=== PATIENT | female | born 1960 | race Caucasian/White ===

== ENCOUNTER → 2022-02-01 11:23 | Outpatient (BNVA) | payer OTHER, SELFPAY | PROVIDERS: PCP Internal Medicine; Referring Provider Internal Medicine; Visit Provider Physician Assistant | DX: Z86.010 Personal history of colon polyps (principal) | CPT/HCPCS: 99202 ==

== ENCOUNTER 2022-02-11 12:22 | Outpatient (REF) | payer OTHER, SELFPAY ==
[2022-02-11 13:48] LABS: MANUAL DIFF FLAG NO
[2022-02-11 13:51] LABS: Basophils Absolute Auto 0.1 X10*3/uL (0.0-0.2); Eosinophils Absolute Auto 0.3 X10*3/uL (0.0-0.4); Eosinophils Percent Auto 6.5 % (0-4); Hematocrit 37.2 % (37.0-47.0); Hemoglobin 12.1 g/dl (12.0-16.0); Imm Gran Abs Auto 0.01 X10*3/uL (0.00-0.03); Imm Gran Pct Auto 0.2 % (0.0-0.4); Lymphocytes Absolute Auto 1.5 X10*3/uL (1.2-4.9); Lymphocytes Percent Auto 30.9 % (20-40); Mean Corpuscular HGB Conc 32.5 g/dl (31.0-35.0); Mean Corpuscular Hemoglobin 30.4 pg (27.0-33.0); Mean Corpuscular Volume 93.5 fL (80.0-98.0); Mean Platelet Volume 10.7 fL (9.4-12.3); Monocytes Absolute Auto 0.4 X10*3/uL (0.1-1.2); Monocytes Percent Auto 8.7 % (2-11); Neutrophils Absolute Auto 2.6 x10*3/uL (2.0-8.3); Neutrophils Percent Auto 52.7 % (45-73); Platelet Count 318 X10*3/uL (160-400); Red Blood Count 3.98 X10*6/uL (4.20-5.50)
[2022-02-11 14:07] LABS: Alanine Aminotransferase 11 U/L (0-31); Albumin Level 4.3 g/dL (3.5-5.0); Alkaline Phosphatase 73 U/L (39-117); Anion Gap 14 (12-20); Aspartate Amino Transferase 18 U/L (5-31); Bilirubin Total 0.3 mg/dL (0.0-1.0); Blood Urea Nitrogen 13 mg/dL (9-16); Calcium 9.4 mg/dL (8.4-10.2); Carbon Dioxide 26 mmol/L (22-29); Chloride 103 mmol/L (96-108); Cholesterol 220 mg/dL; Estimated Glomerular Filt Rate > 60; Glucose Fasting 92 mg/dL (60-99); HDL Cholesterol 80 mg/dL; LDL Cholesterol Calculated 130 mg/dl; Magnesium 1.9 mg/dL (1.6-2.6); Potassium 4.1 mmol/L (3.3-5.1); Sodium 139 mmol/L (135-145); Total Protein 6.9 g/dL (6.5-8.0); Triglycerides 54 mg/dL
[2022-02-11 14:30] LABS: TSH reflex Free T4 1.16 uIU/mL (0.32-4.0); Vitamin D 25-OH Total 44.5 ng/mL (>30)
== END 2022-02-11 12:23 | disposition home or self-care (01) ==
LOC: HO.HMGCLDS 12:22
PROVIDERS: PCP Internal Medicine; Visit Provider Internal Medicine
DX: Z00.00 Encounter for general adult medical examination without abnormal findings (principal); R00.2 Palpitations
CPT/HCPCS: 36415; 80053; 80061; 82306; 83735; 84443; 85025

== ENCOUNTER 2022-09-22 10:41 | Day surgery (SDC) | payer OTHER, SELFPAY ==
[2022-09-19 19:13] VITALS: BMI 21.5
--- NOTE | 2022-09-21 10:24 | P.CONAN_ITS ---
Documented by User: Ester Garcia NP 09/21/22 10:25 HPI - Anesthesia Eval Consult details Narrative: 61yo F for Colonoscopy PMFSH Active Problems Active Problems: All Active Problems (Updated 02/01/22 @ 12:19 by Camila Jimenez PA-C) Annual physical exam (Acute) Palpitations (Acute) History of adenomatous polyp of colon (Acute) Eczema (Acute) Past Medical History Medical History (Updated 02/01/22 @ 12:19 by Camila Jimenez PA-C) Eczema Rupture of ligament Family History Family History Father Coronary heart disease Heart attack Substance use disorder Paternal Uncle Heart attack Paternal Grandfather Stroke Mother Alzheimer disease Surgical History Surgical History (Updated 09/19/22 @ 19:13 by Jonna Mello RN) H/O exploratory laparotomy History of colonoscopy Hx of appendectomy Hx of tonsillectomy Social History Social History Household Members Other:: lives with mother Housing: House Are you a primary pet care associate to a significant other at home: Yes (PRIMARY CAREGIVER TO MOTHER) Patient Tobacco Use Status: Never used Tobacco e-Cigarette/Vaping Use: Never Used Use of substances other than those prescribed or required for medical reasons: No Are you DNR?: No Advance Directives: No Advance Directives Information Provided: No Advance Directives on File: No Recently lost weight without trying: No Nutrition Risks: No Nutritional Risk Current occupational status: employed Cognitive needs: No Hearing needs: No Vision needs: Yes Meds Allergies Allergy/AdvReac Type Severity Reaction Status Date / Time latex Allergy Rash Verified 09/19/22 19:12 Home Medications Medication Instructions Recorded Confirmed Last Taken Type cholecalciferol (vitamin D3) 125 125 mcg PO DAILY 09/19/22 09/19/22 Unknown History mcg (5,000 unit) tablet (Vitamin D3) Exam Exam Date and Time: September 21, 2022 1024 Height,Weight and Vital Signs: Height 5 ft 4 in Weight 56.699 kg Assessment and Plan Assessment Anesthesia Assessment: Chart Reviewed Documented by User: Bobo Venegas MD 09/22/22 12:03 [facility] Past Medical History Medical History (Updated 02/01/22 @ 12:19 by Camila Jimenez PA-C) Eczema Rupture of ligament Family History Family History Father Coronary heart disease Heart attack Substance use disorder Paternal Uncle Heart attack Paternal Grandfather Stroke Mother Alzheimer disease Family history of problems with anesthesia: No Surgical History Surgical History (Updated 09/19/22 @ 19:13 by Jonna Mello RN) H/O exploratory laparotomy History of colonoscopy Hx of appendectomy Hx of tonsillectomy History of Problems with Anesthesia: No Social History Social History Household Members Other:: lives with mother Housing: House Are you a primary pet care associate to a significant other at home: Yes (PRIMARY CAREGIVER TO MOTHER) Patient Tobacco Use Status: Never used Tobacco e-Cigarette/Vaping Use: Never Used Use of substances other than those prescribed or required for medical reasons: No Are you DNR?: No Advance Directives: No Advance Directives Information Provided: No Advance Directives on File: No Recently lost weight without trying: No Nutrition Risks: No Nutritional Risk Current occupational status: employed Cognitive needs: No Hearing needs: No Vision needs: Yes Meds Allergies Allergy/AdvReac Type Severity Reaction Status Date / Time latex Allergy Rash Verified 09/19/22 19:12 Home Medications Medication Instructions Recorded Confirmed Last Taken Type cholecalciferol (vitamin D3) 125 125 mcg PO DAILY 09/19/22 09/19/22 Unknown History mcg (5,000 unit) tablet (Vitamin D3) Exam Airway Mallampati Class: I TM Dist: >3cm Neck ROM: Full Heart: ok Lungs: ok Other: severe eczema Assessment and Plan Assessment Anesthesia Assessment: Anesthesia Plan Discussed Final Anesthetic Review Family History of Problems with Anesthesia: No History of Problems with Anesthesia: No NPO: Yes ASA Class: II Final Preanesthetic Review: No Changes in Pt Med Stat, Meds/Allgs Chart Reviewed, Consent Obtained/Reviewed and Anes Risks/Benef Reviewed Patient Risk: Low Procedure Risk: Low Anesthetic Plan Anesthetic Plan: MAC: Disposition: Standard PACU
[2022-09-22 10:56] VITALS: BP 100/63; PULSE 72; RESP 16; TEMP 37.1; O2SAT 98; BMI 20.6
--- NOTE | 2022-09-22 11:55 | MHC.SHP ---
Pre-Procedural Eval Section A Date of Service: 09/22/22 The patient is an INPATIENT: No The History & Physical has been completed within 30 days and I have reviewed it.: No Section B Chief Complaint: Screening, history of colon polyps Relevant Family History (Specify if Yes): No Relevant Social History: None Present Medications: see Short Stay Collaborative assessment Medical History: Significant History (Eczema Rupture of ligament) History of Previous Operations: Relevant previous surgery/procedure and date(s) (Hx of appendectomy Hx of tonsillectomy) Allergies: Allergies Allergy/AdvReac Type Severity Reaction Status Date / Time latex Allergy Rash Verified 09/19/22 19:12 Review of Systems Sugical H&P ROS: Negative: Constitution, Cardiovascular, Respiratory and Gastrointestinal Exam Surgical H&P Exam: Normal: Heart, Normal: Lungs, Normal: Extremities and Normal: Abdomen Plan Diagnosis/Plan: Unchanged I have reviewed the history and physical and performed a pertinent physical examination on my patient. No changes have occurred unless specified. Time Spent With Patient Time: Total time managing care of this patient today ____ minutes.
[2022-09-22 12:55] VITALS: BP 108/59; PULSE 72; RESP 18; TEMP 36.3; O2SAT 97
--- NOTE | 2022-09-22 12:55 | W.PM.OPN ---
Operative Note Operative Note Date of Service: 09/22/22 Narrative: COLONOSCOPY TILL CECUM WITH SNARE POLYPECTOMY, SUBMUCOSAL INJECTION AND HEMOCLIP PLACEMENT Pre-op diagnosis: Screening, history of colon polyps Post-op diagnosis:? Colon polyps Endoscopist:? Ciaran Gutierrez MD Anesthesia:?MAC Consent: Indications for the procedure and potential complications of bleeding, perforation, reaction to medications and missed diagnosis were discussed with the patient and informed consent was obtained. Instrument: Olympus PCF H 190 L variable stiffness pediatric colonoscope Monitoring: Vital signs and clinical assessment, intermittent blood pressure monitoring, continuous EKG monitoring, Pulse oximetry and Carbon Dioxide monitoring were done throughout the procedure. Please see anesthesia flowsheet. Colon withdrawl time was 17 minutes. Procedure: The patient was placed in the left lateral decubitis position and pre-procedure medications were administered. After a digital rectal examination of the ano-rectum, the video colonoscope was inserted into the rectum and advanced through the colon to the cecum. The colonoscope was slowly withdrawn in a retrograde panoramic fashion and the colon mucosa was carefully examined including a retroflexed view of the rectum. Findings and interventions are described below. Procedure Difficulty: Colon was long and tortuous and there was some loop formation Findings: Terminal Ileum: Not evaluated Cecum: A 2 cms flat polyp raised with 4 cc of Eleview and removed with a hot snare. Polypectomy site was closed with 3 hemoclips and marked by emerald ink Ascending Colon: Normal Transverse Colon: Normal Descending Colon: Normal Sigmoid Colon: Normal Rectum: An 8-9 mm sessile polyp at 10 cms - removed with a hot snare Ano-rectum: Normal Colon preparation: Excellent Impression and Post Procedure Diagnosis: Colonoscopy Findings: Two polyps removed Plan: Await pathology results Patient has an appointment on 10/31/22 in the GI Clinic with PERRI Rodas . Repeat Colonoscopy interval based on path results - in 1 year if cecal polyp is adenomatous to check polypectomy site and 5 years if polyps are hyperplastic (adult colonoscope for future colonoscopies). Above findings were reviewed with the patient and colon polyps handout was given in the discharge area
[2022-09-22 13:10] VITALS: BP 101/59; PULSE 68; RESP 18; TEMP 36.2; O2SAT 100
== END 2022-09-22 13:32 | disposition home or self-care (01) ==
PROVIDERS: PCP Internal Medicine; Visit Provider Internal Medicine Gastroenterology
PROC: 0DJD8ZZ Inspection of Lower Intestinal Tract, Via Natural or Artificial Opening Endoscopic (ICD-10-PCS; CPT 45378; principal; 2022-09-22 11:50)
DX: Z12.11 Encounter for screening for malignant neoplasm of colon (principal); Z86.010 Personal history of colon polyps; D12.0 Benign neoplasm of cecum; D12.8 Benign neoplasm of rectum; L30.9 Dermatitis, unspecified; Z79.899 Other long term (current) drug therapy; Z91.041 Radiographic dye allergy status
CPT/HCPCS: 45385; 45381; 88305

== ENCOUNTER → 2022-10-31 13:05 | Outpatient (BNVA) | payer OTHER, SELFPAY | PROVIDERS: PCP Internal Medicine; Visit Provider Physician Assistant | DX: D12.6 Benign neoplasm of colon, unspecified (principal); Z86.010 Personal history of colon polyps | CPT/HCPCS: 99212 ==

== ENCOUNTER 2023-07-17 13:08 | Outpatient (AMB) | payer OTHER, SELFPAY ==
--- NOTE | 2023-07-17 13:10 | A.OFFVIS_ITS ---
Intake Vital Signs 07/17/23 13:11 Height 5 ft 4.5 in Weight 115 lb 15.41 oz BMI 19.6 BP 110/60 Blood Pressure Location Lt brachial Position Sitting Pulse 69 Intake Visit Reasons: 8 month fu Intake Note: Ariadne presents in the office as a 8 month follow up. CC: Patient reports doing well from GI standpoint. 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 no N/V/ D/ abdominal pain- fever or chills PFSH Medical History (Updated 07/17/23 @ 13:55 by Camila Jimenez PA-C) Rupture of ligament Eczema Surgical History History of colonoscopy H/O exploratory laparotomy Hx of appendectomy Hx of tonsillectomy Family History Father Coronary heart disease Heart attack Substance use disorder Paternal Uncle Heart attack Paternal Grandfather Stroke Mother Alzheimer disease Social History Household Members Other:: lives with mother Housing: House Are you a primary client care specialist to a significant other at home: Yes (PRIMARY CAREGIVER TO MOTHER) Patient Tobacco Use Status: Never used Tobacco e-Cigarette/Vaping Use: Never Used Current occupational status: employed Cognitive needs: No Hearing needs: No Vision needs: Yes Review of Systems Const All systems reviewed & are unremarkable except as noted in HPI and below Card Denies chest pain and Denies dyspnea Resp Denies dyspnea GI Denies abdominal pain, Denies heartburn, Denies diarrhea, Denies nausea and Denies vomiting Skin/Breast Details: severe eczema Reports pruritus and Reports erythema Psych Reports anxiety Physical Exam Vital Signs: Last Vital Signs Pulse 69 03/11/24 13:11 BP 110/60 07/17/23 13:11 BMI result Body Mass Index 19.6 Const General: cooperative Nutritional Appearance: thin Orientation/consciousness: patient oriented x3 Limitations: no limitations Skin General skin exam: crusts, dry skin and erythema Rashes: rashes noted Neuro General: patient oriented x3 Extrem General: Yes full ROM Psych Appearance: well kempt Mental Status: mental status grossly normal Speech and movement: Normal speech and movement present Affect: Anxious affect present Attitude: cooperative Thought process: Normal thought process present Thought content: Normal thought content present Results Reviewed Results Reviewed: indings: Terminal Ileum: Not evaluated Cecum:? A 2 cms flat polyp raised with 4 cc of Eleview and removed with a hot snare. Polypectomy site was closed with 3 hemoclips and marked by emerald ink Ascending Colon:? Normal Transverse Colon:? Normal Descending Colon:? Normal Sigmoid Colon:? Normal Rectum:? An 8-9 mm sessile polyp at 10 cms - removed with a hot snare Ano-rectum:? Normal Colon preparation: Excellent ? Impression and Post Procedure Diagnosis: Colonoscopy Findings: Two polyps removed Plan: Await pathology results Patient has an appointment on 10/31/22 in the GI Clinic with PERRI Rodas . Repeat Colonoscopy interval based on path results - in 1 year if cecal polyp is adenomatous to check polypectomy site and 5 years if polyps are hyperplastic (adult colonoscope for future colonoscopies). Above findings were revi Name:Ariadne Lu Age/Sex: 61/FAttending: Ciaran Gutierrez MD : 1960Submitted by: Ciaran Gutierrez MD to: Macey Damon MD MR #: [id number]? Status: DEP SDCCollected: 09/22/22 [facility] Diagnosis A.? Colon, cecal polyp:? Sessile serrated lesion/polyp without dysplasia. B.? Colon, rectal polyp:? Tubular adenoma; negative for high-grade dysplasia and carcinoma, and 1 fragment of sessile serrated lesion/polyp without dysplasia (? contaminant from A). Assessment & Plan Assessment & Plan (1) History of adenomatous polyp of colon: Comment: very pleasant due for colonoscopy surveillance Code(s): Z86.010 - Personal history of colonic polyps (2) Sessile serrated polyp of colon: Comment: 2 cm ss cecal polyp Code(s): D12.6 - Benign neoplasm of colon, unspecified (3) Eczema: Code(s): L30.9 - Dermatitis, unspecified Plan: cont derm Plan polyp surveillance - Dr. Matt calix MG prep Orders: Orders Colonoscopy - GI Use Only Today Z12.11 - Encounter for screening for malignant neoplasm of colon Medications: New bisacodyl (Dulcolax (bisacodyl)) Day before procedure @ 12 noon Take 4 tablets by mouth followed by large glass of water 10 mg (2 x 5 mg) PO ONCE 2 tabs 0RF colonoscopy prep 1 day Z12.11 - Encounter for screening for malignant neoplasm of colon polyethylene glycol 3350 (Miralax) Take as directed by mouth the day before your procedure. 238 grams PO ONCE 238 grams 0RF laxative effect 1 day Patient Instructions: polyp surveillance - Dr. Matt calix MG prep, reviewed- lit given Call with questions or concerns. Coding Level of Care Code Est Pt Level 3 (21608) Diagnoses History of adenomatous polyp of colon Z86.010 Sessile serrated polyp of colon D12.6 Eczema L30.9 Time Spent (min) 20
[2023-07-17 13:11] VITALS: BP 110/60; PULSE 69; BMI 19.6
== END 2023-07-17 13:45 | disposition home or self-care (01) ==
PROVIDERS: PCP Internal Medicine; Visit Provider Physician Assistant
DX: Z86.010 Personal history of colon polyps (principal); D12.6 Benign neoplasm of colon, unspecified; L30.9 Dermatitis, unspecified
CPT/HCPCS: 99213

== ENCOUNTER → 2023-07-17 13:08 | Outpatient (BNVA) | payer OTHER, SELFPAY | PROVIDERS: PCP Internal Medicine; Visit Provider Physician Assistant | DX: D12.6 Benign neoplasm of colon, unspecified (principal); L30.9 Dermatitis, unspecified; Z86.010 Personal history of colon polyps | CPT/HCPCS: 99212 ==

== ENCOUNTER 2023-12-25 08:40 | Day surgery (SDC) | payer OTHER, SELFPAY ==
--- NOTE | 2023-12-22 09:24 | P.CONAN_ITS ---
Documented by User: Ester Garcia NP 12/22/23 09:24 HPI - Anesthesia Eval Consult details Narrative: 63yo F for Colonoscopy PMFSH Active Problems Active Problems: All Active Problems Sessile serrated polyp of colon (Acute) Annual physical exam (Acute) Palpitations (Acute) History of adenomatous polyp of colon (Acute) Eczema (Acute) Past Medical History Medical History (Updated 07/17/23 @ 13:55 by Camila Jimenez PA-C) Rupture of ligament Eczema Family History Family History Father Coronary heart disease Heart attack Substance use disorder Paternal Uncle Heart attack Paternal Grandfather Stroke Mother Alzheimer disease Family history of problems with anesthesia: No Surgical History Surgical History History of colonoscopy H/O exploratory laparotomy Hx of appendectomy Hx of tonsillectomy History of Problems with Anesthesia: No Social History Social History Household Members Other:: lives with mother Housing: House Are you a primary manager wound care to a significant other at home: Yes (PRIMARY CAREGIVER TO MOTHER) Patient Tobacco Use Status: Never used Tobacco e-Cigarette/Vaping Use: Never Used Use of substances other than those prescribed or required for medical reasons: No Are you DNR?: No Advance Directives: No Advance Directives Information Provided: Yes Recently lost weight without trying: No Nutrition Risks: No Nutritional Risk Current occupational status: employed Cognitive needs: No Hearing needs: No Vision needs: Yes Meds Allergies Allergy/AdvReac Type Severity Reaction Status Date / Time Milk Containing Products Allergy Severe Hives Verified 07/17/23 13:17 (Dairy) No Known Drug Allergies Allergy Unknown none Verified 07/17/23 13:17 latex Allergy Rash Verified 07/17/23 13:17 Home Medications ?Medication ?Instructions ?Recorded ?Confirmed ?Last Taken ?Type cholecalciferol (vitamin D3) 125 125 mcg PO DAILY 09/19/22 12/25/23 12/23/23 History mcg (5,000 unit) tablet (Vitamin D3) Assessment and Plan Assessment Anesthesia Assessment: Chart Reviewed Final Anesthetic Review Family History of Problems with Anesthesia: No History of Problems with Anesthesia: No Documented by User: Kadie Bo MD 12/25/23 09:16 [facility] Past Medical History Medical History (Updated 07/17/23 @ 13:55 by Camila Jimenez PA-C) Rupture of ligament Eczema Family History Family History Father Coronary heart disease Heart attack Substance use disorder Paternal Uncle Heart attack Paternal Grandfather Stroke Mother Alzheimer disease Surgical History Surgical History History of colonoscopy H/O exploratory laparotomy Hx of appendectomy Hx of tonsillectomy Social History Social History Household Members Other:: lives with mother Housing: House Are you a primary manager wound care to a significant other at home: Yes (PRIMARY CAREGIVER TO MOTHER) Patient Tobacco Use Status: Never used Tobacco e-Cigarette/Vaping Use: Never Used Use of substances other than those prescribed or required for medical reasons: No Are you DNR?: No Advance Directives: No Advance Directives Information Provided: Yes Recently lost weight without trying: No Nutrition Risks: No Nutritional Risk Current occupational status: employed Cognitive needs: No Hearing needs: No Vision needs: Yes Meds Allergies Allergy/AdvReac Type Severity Reaction Status Date / Time Milk Containing Products Allergy Severe Hives Verified 07/17/23 13:17 (Dairy) No Known Drug Allergies Allergy Unknown none Verified 07/17/23 13:17 latex Allergy Rash Verified 07/17/23 13:17 Home Medications ?Medication ?Instructions ?Recorded ?Confirmed ?Last Taken ?Type cholecalciferol (vitamin D3) 125 125 mcg PO DAILY 09/19/22 12/25/23 12/23/23 History mcg (5,000 unit) tablet (Vitamin D3) Exam Airway Mallampati Class: II TM Dist: >3cm Neck ROM: Full Heart: rrr Lungs: cta Assessment and Plan Assessment Anesthesia Assessment: Anesthesia Plan Discussed Final Anesthetic Review NPO: Yes ASA Class: II Final Preanesthetic Review: No Changes in Pt Med Stat, Meds/Allgs Chart Reviewed and Consent Obtained/Reviewed Patient Risk: Low Procedure Risk: Low Anesthetic Plan Anesthetic Plan: MAC: Disposition: Standard PACU
[2023-12-25 08:54] VITALS: BMI 20.3
--- NOTE | 2023-12-25 09:22 | MHC.SHP ---
Pre-Procedural Eval Section A - 24 Hr Update-Section A only Date of Service: 12/25/23 The patient is an INPATIENT: No The patient has been examined within 24 hours of the surgical procedure. The History & Physical has been completed within 30 days and I have reviewed it.: No Section B - Complete if H&P > 30 days Chief Complaint: Surveillance for colon polyps Present Medications: see Short Stay Collaborative assessment Medical History: Significant History (Rupture of ligament Eczema) History of Previous Operations: Relevant previous surgery/procedure and date(s) (History of colonoscopy H/O exploratory laparotomy Hx of appendectomy Hx of tonsillectomy) Allergies: Allergies Allergy/AdvReac Type Severity Reaction Status Date / Time Milk Containing Products Allergy Severe Hives Verified 07/17/23 13:17 (Dairy) No Known Drug Allergies Allergy Unknown none Verified 07/17/23 13:17 latex Allergy Rash Verified 07/17/23 13:17 steroids AdvReac Unknown Uncoded 12/25/23 09:18 Review of Systems Sugical H&P ROS: Negative: Constitution, Cardiovascular, Respiratory and Gastrointestinal Exam Surgical H&P Exam: Normal: Heart, Normal: Lungs, Normal: Extremities and Normal: Abdomen Plan Diagnosis/Plan: Unchanged I have reviewed the history and physical and performed a pertinent physical examination on my patient. No changes have occurred unless specified. Time Spent With Patient Time: Total time managing care of this patient today ____ minutes.
[2023-12-25 09:29] VITALS: BP 86/56; PULSE 63; RESP 16; TEMP 36.7; O2SAT 96
[2023-12-25] MEDS: Lactated Ringers 1,000 ML 100 ML IVCONT (09:34)
--- NOTE | 2023-12-25 11:08 | HO.OPN-COLON ---
Colonoscopy Operative Note Operative Note Date of Service: 12/25/23 Narrative: COLONOSCOPY TILL CECUM WITH BIOPSIES, SNARE POLYPECTOMY, SUBMUCOSAL INJECTION AND HEMOCLIP PLACEMENT Pre-op diagnosis: Surveillance for colon polyps. Post-op diagnosis:? Colon polyps, Diverticulosis Endoscopist:? Ciaran Gutierrze MD Anesthesia:?MAC Consent: Indications for the procedure and potential complications of bleeding, perforation, reaction to medications and missed diagnosis were discussed with the patient and informed consent was obtained. Instrument: Olympus PCF H 190 L variable stiffness pediatric colonoscope Monitoring: Vital signs and clinical assessment, intermittent blood pressure monitoring, continuous EKG monitoring, Pulse oximetry and Carbon Dioxide monitoring were done throughout the procedure. Please see anesthesia flowsheet. Colon withdrawl time was 21 minutes. Procedure: The patient was placed in the left lateral decubitis position and pre-procedure medications were administered. After a digital rectal examination of the ano-rectum, the video colonoscope was inserted into the rectum and advanced through the colon to the cecum. The colonoscope was slowly withdrawn in a retrograde panoramic fashion and the colon mucosa was carefully examined including a retroflexed view of the rectum. Findings and interventions are described below. Procedure Difficulty: Colon was long and tortuous and there was some loop formation. LLQ pressure was applied to intubate the ascending colon Findings: Terminal Ileum: Not evaluated Cecum: A 3-4 mm sessile polyp - removed with a cold biopsy. Polypctomy site visualized with a 3-4 mm residual polyp versus fold - removed with a cold biopsy. Ascending Colon: Normal Transverse Colon: A 10-12 mm flat polyp at 75 cms - raised with 4 cc of Eleview and removed with a stiff hot snare. Polypectomy site was closed with 1 hemoclip Descending Colon: Normal Sigmoid Colon: A 10-12 mm sessile polyp - removed with a hot snare. Mild diverticulosis Rectum: A 4-5 mm diminutive appearing polyp in the distal rectum - biopsied. Ano-rectum: Normal Colon preparation: Excellent after some irrigation. [place] Bowel Preparation Scale Right colon; 3 Transverse colon: 3 Left colon; 3 (0 = Unprepared colon segment with mucosa not seen due to solid stool that cannot be cleared. 1 = Portion of mucosa of the colon segment seen, but other areas of the colon segment not well seen due to staining, residual stool and/or opaque liquid. 2 = Minor amount of residual staining, small fragments of stool and/or opaque liquid, but mucosa of colon segment seen well. 3 = Entire mucosa of colon segment seen well with no residual staining, small fragments of stool or opaque liquid) Impression and Post Procedure Diagnosis: Colonoscopy Findings: Four small to medium sized polyps were removed Mild diverticulosis seen in the sigmoid colon Plan: I will send a letter with biopsy results Repeat Colonoscopy in 3 years if polyps are adenomatous and 5 yrs if polyps are hyperplastic. Above findings were reviewed with the patient and relevant handouts were given in the discharge area.
[2023-12-25 11:11] VITALS: BP 106/54; PULSE 65; RESP 16; TEMP 36.3; O2SAT 99
[2023-12-25 11:25] VITALS: BP 87/46; PULSE 59; RESP 16; O2SAT 99
[2023-12-25 11:40] VITALS: BP 102/49; PULSE 68; RESP 16; TEMP 36.1; O2SAT 98
== END 2023-12-25 12:05 | disposition home or self-care (01) ==
PROVIDERS: PCP Internal Medicine; Visit Provider Internal Medicine Gastroenterology
PROC: 0DJD8ZZ Inspection of Lower Intestinal Tract, Via Natural or Artificial Opening Endoscopic (ICD-10-PCS; CPT 45378; principal; 2023-12-25 10:20)
DX: Z12.11 Encounter for screening for malignant neoplasm of colon (principal); D12.0 Benign neoplasm of cecum; D12.5 Benign neoplasm of sigmoid colon; K57.30 Diverticulosis of large intestine without perforation or abscess without bleeding; K56.2 Volvulus; K62.1 Rectal polyp; Z86.010 Personal history of colon polyps
CPT/HCPCS: 45381; 45385; 45380; 88305; J2704

== ENCOUNTER → 2023-12-25 08:40 | Outpatient (BNV) | payer OTHER, SELFPAY | PROVIDERS: PCP Internal Medicine; Visit Provider Internal Medicine Gastroenterology | DX: Z12.11 Encounter for screening for malignant neoplasm of colon (principal); Z86.010 Personal history of colon polyps; D12.0 Benign neoplasm of cecum; D12.5 Benign neoplasm of sigmoid colon; K62.1 Rectal polyp; K63.5 Polyp of colon; K57.30 Diverticulosis of large intestine without perforation or abscess without bleeding | CPT/HCPCS: 45380; 45385 ==

== ENCOUNTER → 2024-08-21 15:16 | Outpatient (BNVA) | payer OTHER, SELFPAY | PROVIDERS: PCP Internal Medicine; Visit Provider Nurse Practitioner Family | DX: D12.5 Benign neoplasm of sigmoid colon (principal) | CPT/HCPCS: 99212 ==

== ENCOUNTER → 2024-08-21 15:16 | Outpatient (AMB) | payer OTHER, SELFPAY ==
--- NOTE | 2024-08-21 15:18 | MHC.OFFVIS ---
Vital Signs 08/21/24 15:24 Height 5 ft 4 in Weight 121 lb BMI 20.8 BP 82/45 L Blood Pressure Location Lt brachial Position Sitting Pulse 64 Pulse Oximetry (%) 96 Oxygen Delivery Method Room Air Intake Visit Reasons: hx polyps/Camila pt sayda 07/17/23 Intake Note: Patient complex follow up for hx polyps/Camila pt sayda 07/17/23, last Colonoscopy was 12/25/[address] Gutierrez with 3 to 5 yrs recall. Patient denies any GI issues. Pumper Hand Required: No Accompanied by: Self / Same As Patient Allergies Milk Containing Products (Dairy) Allergy (Severe, Verified 08/21/24 15:18) Hives No Known Drug Allergies Allergy (Unknown, Verified 08/21/24 15:18) none latex Allergy (Verified 08/21/24 15:18) Rash steroids Adverse Reaction (Uncoded 12/25/23 09:18) Unknown HPI HPI hx polyps/Camila pt sayda 07/17/23: Details: Patient is a 63-year-old female with PMH of eczema. Last visit with PERRI Harris 07/17/2023 for 8 month follow-up Pt is here today for follow up on 12/25/2023 colonoscopy results. She denies any GI symptoms/concerns. Shares she is 25 months post steroid withdrawal syndrome. She is now managing her eczema holistically. Patient denies: systemic symptoms, n/v, appetite changes, regurgitation, unintentional wt loss, ab pain, dysphasia, cardiopulmonary symptoms, bladder changes or melena/hematochezia. Social hx: denies ETOH use denies recreational drug use non-smoker denies personal hx of CA Family hx: paternal breast CA, geoblastostoma age 79 PFSH Medical History (Updated 08/22/24 @ 16:59 by Tatum Broderick CNP) Colon polyps Rupture of ligament Eczema Surgical History (Updated 08/21/24 @ 15:23 by Serina Smalls) History of eye surgery History of colonoscopy H/O exploratory laparotomy Hx of appendectomy Hx of tonsillectomy Family History Father Coronary heart disease Heart attack Substance use disorder Paternal Uncle Heart attack Paternal Grandfather Stroke Mother Alzheimer disease Social History Household Members Other:: lives with mother Housing: House Are you a primary geriatric personal care aide to a significant other at home: Yes (PRIMARY CAREGIVER TO MOTHER) Patient Tobacco Use Status: Never used Tobacco e-Cigarette/Vaping Use: Never Used Current occupational status: employed Cognitive needs: No Hearing needs: No Vision needs: Yes Review of Systems Const Reports as per HPI ENT Reports as per HPI Card Reports as per HPI Resp Reports as per HPI GI Reports as per HPI Reports as per HPI Physical Exam Vital Signs: Last Vital Signs Pulse 64 08/21/24 15:24 BP 82/45 L 08/21/24 15:24 Pulse Ox 96 08/21/24 15:24 Oxygen Delivery Method Room Air 08/21/24 15:24 BMI result Body Mass Index 20.8 Const General: healthy appearing, no acute distress and well developed Nutritional Appearance: well nourished Orientation/consciousness: patient oriented x3 HEENT Head: Yes normal to inspection, Yes normocephalic and Yes atraumatic Face and sinus: Yes normal facial exam Eyes General: appearance normal, both eyes and all related structures Neck Neck: Yes normal visual inspection Resp Effort & Inspection: normal respiratory effort, able to speak in complete sentences, no tracheal deviation and symmetric chest movement Auscultation: clear to auscultation bilaterally Cardio Jugular venous distension: no JVD Rate: regular rate Rhythm: regular rhythm Heart sounds: S1 normal heart sound present, S2 normal heart sound present, no gallops and no murmurs GI Inspection: Yes normal to inspection and No distended Palpation (GI): Soft to palpation, not firm, nontender and No hepatosplenomegaly present Auscultation: normal bowel sounds Skin General skin exam: dry skin Rashes: rashes noted (Dry scaly patches noted to face/exposed upper extremities) Neuro General: patient oriented x3 Gait exam (Neuro): Normal gait present Psych Appearance: grossly normal Mental Status: mental status grossly normal Speech and movement: Normal speech and movement present Affect: Anxious affect present Attitude: cooperative Thought process: Normal thought process present Thought content: Normal thought content present Insight: Good insight present (Psych) Judgement: Good judgement present (Psych) Results Reviewed Results Reviewed: Colonoscopy Operative Note Operative Note Date of Service: 12/25/23 Narrative: COLONOSCOPY TILL CECUM WITH BIOPSIES, SNARE POLYPECTOMY, SUBMUCOSAL INJECTION AND HEMOCLIP PLACEMENT Pre-op diagnosis: Surveillance for colon polyps. Post-op diagnosis:? Colon polyps, Diverticulosis Endoscopist:? Ciaran Gutierrez MD Procedure: The patient was placed in the left lateral decubitis position and pre-procedure medications were administered. After a digital rectal examination of the ano-rectum, the video colonoscope was inserted into the rectum and advanced through the colon to the cecum. The colonoscope was slowly withdrawn in a retrograde panoramic fashion and the colon mucosa was carefully examined including a retroflexed view of the rectum. Findings and interventions are described below. Procedure Difficulty: Colon was long and tortuous and there was some loop formation. LLQ pressure was applied to intubate the ascending colon Findings: Terminal Ileum: Not evaluated Cecum: A 3-4 mm sessile polyp - removed with a cold biopsy. Polypctomy site visualized with a 3-4 mm residual polyp versus fold - removed with a cold biopsy. Ascending Colon: Normal Transverse Colon: A 10-12 mm flat polyp at 75 cms - raised with 4 cc of Eleview and removed with a stiff hot snare. Polypectomy site was closed with 1 hemoclip Descending Colon: Normal Sigmoid Colon: A 10-12 mm sessile polyp - removed with a hot snare. Mild diverticulosis Rectum: A 4-5 mm diminutive appearing polyp in the distal rectum - biopsied. Ano-rectum: Normal Colon preparation: Excellent after some irrigation. [place] Bowel Preparation Scale Right colon; 3 Transverse colon: 3 Left colon; 3 Impression and Post Procedure Diagnosis: Colonoscopy Findings: Four small to medium sized polyps were removed Mild diverticulosis seen in the sigmoid colon Plan: I will send a letter with biopsy results Repeat Colonoscopy in 3 years if polyps are adenomatous and 5 yrs if polyps are hyperplastic. Pathology Collected: 12/25/23 Location: [facility] Received: 12/25/23 Diagnosis A. Colon, transverse, polyp: Consistent with hyperplastic polyp with thermal artifact. B. Colon, cecal polyp: Tubular adenoma; negative for high-grade dysplasia and carcinoma. C. Colon, cecal polypectomy site: Colonic mucosa with no specific change; no adenomatous dysplasia seen. D. Colon, sigmoid, polyp: Tubular adenoma; negative for high-grade dysplasia and carcinoma. E. Colon, rectal polyp: Consistent with hyperplastic polyp COLONOSCOPY TILL CECUM WITH SNARE POLYPECTOMY, SUBMUCOSAL INJECTION AND HEMOCLIP PLACEMENT Date of Service: 09/22/22 Narrative: Pre-op diagnosis: Screening, history of colon polyps Post-op diagnosis:? Colon polyps Endoscopist:? Ciaran Gutierrez MD Procedure: The patient was placed in the left lateral decubitis position and pre-procedure medications were administered. After a digital rectal examination of the ano-rectum, the video colonoscope was inserted into the rectum and advanced through the colon to the cecum. The colonoscope was slowly withdrawn in a retrograde panoramic fashion and the colon mucosa was carefully examined including a retroflexed view of the rectum. Findings and interventions are described below. Procedure Difficulty: Colon was long and tortuous and there was some loop formation Findings: Terminal Ileum: Not evaluated Cecum: A 2 cms flat polyp raised with 4 cc of Eleview and removed with a hot snare. Polypectomy site was closed with 3 hemoclips and marked by emerald ink Ascending Colon: Normal Transverse Colon: Normal Descending Colon: Normal Sigmoid Colon: Normal Rectum: An 8-9 mm sessile polyp at 10 cms - removed with a hot snare Ano-rectum: Normal Colon preparation: Excellent Impression and Post Procedure Diagnosis: Colonoscopy Findings: Two polyps removed Plan: Await pathology results Patient has an appointment on 10/31/22 in the [facility] with PERRI Rodas . Repeat Colonoscopy interval based on path results - in 1 year if cecal polyp is adenomatous to check polypectomy site and 5 years if polyps are hyperplastic (adult colonoscope for future colonoscopies). Pathology Collected: 09/22/2022 Received: 09/22/2022 Diagnosis A. Colon, cecal polyp: Sessile serrated lesion/polyp without dysplasia. B. Colon, rectal polyp: Tubular adenoma; negative for high-grade dysplasia and carcinoma, and 1 fragment of sessile serrated lesion/polyp without dysplasia (? contaminant from A) Assessment & Plan Assessment & Plan (1) Colon polyps: Comment: Colonoscopy 12/25/2023: Colon, cecal + sigmoid, polyp: Tubular adenoma; Colon, transverse + recal polyp: Consistent with hyperplastic polyps Code(s): K63.5 - Polyp of colon Category: Medical Qualifiers: Colon polyp type: adenomatous Colon location: sigmoid Qualified Code(s): D12.5 - Benign neoplasm of sigmoid colon Plan: Reviewed 12/25/2023 colonoscopy results, pathology findings and repeat recommendations. Next colonoscopy due 2026. Time allotted for questions. Plan Follow-up in 2 years or sooner as needed Time: I spent a total of 60 minutes on the date of encounter which includes: Preparing to see the patient (reviewed previous documentation, test results and medical history) Performing a medically appropriate exam and/or evaluation Ordering medications, tests, and procedures Documenting clinical information in the health record Coding Level of Care Code Established Pt Est Pt Level 3 (93950) Patient Type Established Diagnoses Adenomatous polyp of sigmoid colon D12.5 Colon polyp type: adenomatous Colon location: sigmoid
[2024-08-21 15:24] VITALS: BP 82/45; PULSE 64; O2SAT 96; BMI 20.8
== END ==
LOC: HO.HGI 15:17
PROVIDERS: PCP Internal Medicine; Visit Provider Nurse Practitioner Family
DX: D12.5 Benign neoplasm of sigmoid colon (principal)
CPT/HCPCS: 99215